=== PATIENT | female | born 1990 | race Caucasian/White ===

== ENCOUNTER → 2020-02-04 13:08 | Outpatient (ROUT) | payer OTHER, MEDICAID, SELFPAY ==
[2020-02-04 13:20] LABS: Ur Creatinine 20 (Normal); Ur Specific Gravity 1.025 (Normal)
[2020-02-04 13:21] LABS: UR Morphine/Opiate cutoff 300 Negative (Negative); Urine Amphetamines Negative (Negative); Urine Barbiturates Negative (Negative); Urine Benzodiazepines Negative (Negative); Urine Cocaine Negative (Negative); Urine MDMA Negative (Negative); Urine Methadone Negative (Negative); Urine Methamphetamines Negative (Negative); Urine Oxycodone Negative (Negative); Urine Phencyclidine Negative (Negative); Urine Tetrahydrocannabinol Negative (Negative); Urine Tricyclic Antidepressant Negative (Negative); Urine pH 7 (Normal)
== END ==
PROVIDERS: Visit Provider Nurse Practitioner Obstetrics & Gynecology
DX: Z34.90 Encounter for supervision of normal pregnancy, unspecified, unspecified trimester (principal); Z3A.11 11 weeks gestation of pregnancy
CPT/HCPCS: 80305

== ENCOUNTER → 2020-11-14 13:25 | Outpatient (CLI) | payer OTHER, MEDICAID, SELFPAY ==
--- NOTE | 2020-11-14 | DI.US.S_ITS ---
PROCEDURE: US OB >= 14 WEEKS FETUS INDICATIONS: ANATOMY OUTSIDE/PRIOR DATING DATA: Last menstrual period (LMP): Not available. LMP-based estimated date of delivery (MARINO): Not available . First dating scan (date and location): This study . Estimated date of delivery (MARINO) from first dating scan: 04/08/21 . TECHNIQUE: Real-time scanning was performed of the fetus, with image documentation and biometric measurements. Endovaginal scanning: Not needed COMPARISON: None. FINDINGS: General: A single living intrauterine gestation is present. Presentation: Vertex. Placenta: Placental position is right posterior , without previa. Amniotic fluid index: 17.1 cm, normal range is 5-24 cm. heart rate: 173 beats per minute. Maternal cervical canal: 4.1 cm long. Normal lower limit is 2.5 cm. biometrics: Biparietal diameter: 4.4 cm, 19 weeks 2 days Head circumference: 16.2 cm, 19 weeks 0 days Abdominal circumference: 14.2 cm, 19 weeks 4 days Femur length: 2.9 cm, 19 weeks 0 days Estimated gestational age from initial scan: not applicable. Composite gestational age from present scan: 19 weeks 2 days Estimated weight: 285 g. Measurement variability for biometric dating: +/- 7 days from 14 weeks to 15 weeks 6 days gestation, +/- 10 days from 16 weeks to 21 weeks 6 days gestation, +/- 2 weeks from 22 weeks to 27 weeks 6 days gestation, +/- 3 weeks for 28 weeks gestation or later. weight reference: 4500 g or EFW >90/95% is considered macrosomia or large for gestational age. EFW <10% is small for gestational age. EFW 5% or less is considered intra-uterine growth restriction. Anatomic survey: Neuro: Ventricles are non-dilated at less than 10 mm. Cisterna magna is normal at 3-11 mm. Cerebellum is normal in size and morphology. Nuchal skin fold: Normal at less than 6 mm between 14-21 weeks gestational age. Face: Nose and lips, facial profile are normal. Spine: No evidence for spina bifida. Heart: 4-chambered heart is present, with normal ventricular outflow tracts. Diaphragm: Diaphragm is intact. Stomach: Left-sided stomach is present. Kidneys: No hydronephrosis. Normal is less than 5 mm in 2nd trimester, less than 7 mm in 3rd trimester. Cord: 3-vessel cord has orthotopic insertion. Bladder: Normal in size. Extremities: All 4 extremities identified. IMPRESSION: Normal survey of anatomy. At time of scanning the placental margin inferiorly is within 4 mm from the internal os of the cervical canal. This may simply reflect a prominent contraction at time of imaging but follow-up assessment in 2 weeks is recommended to establish presence or absence of low lying placenta. Dictated by: Tim Bo M.D. on 11/14/2020 at 16:07 Approved by: Tim Bo M.D. on 11/14/2020 at 16:09
== END ==
PROVIDERS: Referring Provider Nurse Practitioner Obstetrics & Gynecology; Visit Provider Nurse Practitioner Obstetrics & Gynecology
DX: Z36.89 Encounter for other specified antenatal screening (principal); Z3A.19 19 weeks gestation of pregnancy
CPT/HCPCS: 76811

== ENCOUNTER → 2021-02-11 11:18 | Outpatient (CLI) | payer OTHER, MEDICAID, SELFPAY ==
--- NOTE | 2021-02-11 11:19 | DI.US.S_ITS ---
PROCEDURE: US OB LIMITED INDICATIONS: PLACENTA LOCATION OUTSIDE/PRIOR DATING DATA: Last menstrual period (LMP): Unknown . LMP-based estimated date of delivery (MARINO): Not applicable . First dating scan (date and location): November 14, 2020 . Estimated date of delivery (MARINO) from first dating scan: April 08, 2021 . TECHNIQUE: Real-time scanning was performed of the fetus, with image documentation. Endovaginal scanning: Endovaginal scanning performed to better evaluate placental edge relationship to the internal cervical os. COMPARISON: None. FINDINGS: A single living intrauterine gestation is present. Presentation: Cephalic. Placenta: Placental position is posterior , without previa. Amniotic fluid index: 8.6 cm, normal range is 5-24 cm. heart rate: 133 beats per minute. Maternal cervical canal: 4.6 cm long. Normal lower limit is 2.5 cm. Estimated gestational age from initial scan: 32 weeks and 0 days . IMPRESSION: Single living intrauterine gestation with estimated gestational age of approximately 32 weeks and 0 days. Posterior placenta without evidence for placenta previa. Dictated by: Jarrett Ruiz M.D. on 02/11/2021 at 13:40 Approved by: Jarrett Ruiz M.D. on 02/11/2021 at 13:46
== END ==
PROVIDERS: PCP Nurse Practitioner Obstetrics & Gynecology; Referring Provider Nurse Practitioner Obstetrics & Gynecology; Visit Provider Nurse Practitioner Obstetrics & Gynecology
DX: Z36.89 Encounter for other specified antenatal screening (principal); Z3A.32 32 weeks gestation of pregnancy
CPT/HCPCS: 76815; 76817

== ENCOUNTER → 2021-03-13 15:39 | Outpatient (ROUT) | payer OTHER, MEDICAID, SELFPAY | PROVIDERS: PCP Nurse Practitioner Obstetrics & Gynecology; Visit Provider Nurse Practitioner Obstetrics & Gynecology | DX: Z34.90 Encounter for supervision of normal pregnancy, unspecified, unspecified trimester (principal); Z36.85 Encounter for antenatal screening for Streptococcus B; Z3A.36 36 weeks gestation of pregnancy | CPT/HCPCS: 87081; 87147 ==

== ENCOUNTER 2021-04-01 13:55 | Outpatient (CLI) | payer OTHER, MEDICAID, SELFPAY ==
--- NOTE | 2021-04-01 14:17 | PM.OBTRLD ---
Visit Information Visit Information Date of evaluation: 04/01/21 Primary OB Provider: Karlee Alanis Reason for Evaluation: Yes rupture of membranes Comments/Additional reasons for admission: 31 year old at 38 weeks, 5 days by early US, here for evaluation of suspected rupture of membranes . Feels like her underwear have been wet since yesterday morning. Good movement, no contractions. Vital Signs Vital Signs: BP: 117/62 mmHg, HR: 93 bpm, T: 35.7 c temporal FOR[facility]LY [facility], [facility]1983 Social History (Updated 04/01/21 @ 18:13 by Karlee Alanis CNM) Smoking Status: Current every day smoker quit status: not considering quitting substance use type: does not use Review of Systems Review of Systems ROS: Yes All systems reviewed with the patient and are negative except as otherwise documented Exam Vital Signs (past 8 hours): see above Presentation: vertex Amniotic Fluid: no fluid Evaluation Evaluation Baseline heart rate: 120 Variability: Moderate (11-25) monitor accelerations: Present Monitor Decelerations: Absent Contraction Frequency (minutes): 3 Uterine Contraction Intensity: Mild Category of Tracing: Reactive Non-invasive Membranes Rupture Test: negative Comments: CE deferred Diagnosis, Plan/Disposition Final Diagnosis (1) Amniotic cavity/membrane problem suspected but not found: Status: Acute Plan/Disposition Plan: Reassurance of normal given, reviewed routine labor precautions, return to clinic as regularly scheduled. Discharge home
== END 2021-04-01 14:29 | disposition home or self-care (01) ==
LOC: OB 04-02 12:00
PROVIDERS: PCP Nurse Practitioner Obstetrics & Gynecology; Referring Provider Nurse Practitioner Obstetrics & Gynecology; Visit Provider Nurse Practitioner Obstetrics & Gynecology
DX: Z03.71 Encounter for suspected problem with amniotic cavity and membrane ruled out (principal); Z3A.38 38 weeks gestation of pregnancy
CPT/HCPCS: 59025; 84112; G0378; G0379

== ENCOUNTER 2021-04-06 11:15 | Outpatient (CLI) | payer OTHER, MEDICAID, SELFPAY ==
--- NOTE | 2021-04-06 11:34 | PM.OBTRLD ---
Visit Information Visit Information Date of evaluation: 04/06/21 Primary OB Provider: Karlee Alanis On-call OB Provider: Karlee Alanis Reason for Evaluation: Yes other Comments/Additional reasons for admission: 31YO @ 39wks3 days by early US who presents for evaluation of vaginal bleeding. Alonzo balloon was placed and removed 04/04/21 when 04/05/21 IOL was cancelled. +FM. No cramping, or VB. uncomplicated pN care w/ CNM. Vital Signs Vital Signs: BP 116/56 mmHg, HR 93bpm, T 36.3C Temporal PFSH Social History Smoking Status: Current every day smoker quit status: not considering quitting substance use type: does not use Review of Systems Review of Systems ROS: Yes All systems reviewed with the patient and are negative except as otherwise documented Exam Vital Signs (past 8 hours): see above Presentation: vertex Evaluation Evaluation Baseline heart rate: 155 Variability: Moderate (11-25) monitor accelerations: Present Monitor Decelerations: Variable (mild w/ CE) Contraction Frequency (minutes): 0 Category of Tracing: Reactive Cervical dilation (cm): 2 Cervical effacement (%): 70 station: -4 Comments: small amount of brown blood on glove after CE Diagnosis, Plan/Disposition Final Diagnosis (1) Supervision of normal in third trimester: Status: Acute Problem details: Reassurance of normal given Plan/Disposition Plan: discharge to home with routine labor precautions. IOL rescheduled for 04/09/2021.
== END 2021-04-06 11:45 | disposition home or self-care (01) ==
LOC: LABOR 12:38 → OB 04-09 10:45
PROVIDERS: PCP Nurse Practitioner Obstetrics & Gynecology; Referring Provider Nurse Practitioner Obstetrics & Gynecology; Visit Provider Nurse Practitioner Obstetrics & Gynecology
DX: O46.93 Antepartum hemorrhage, unspecified, third trimester (principal); Z3A.39 39 weeks gestation of pregnancy
CPT/HCPCS: 59025; G0378; G0379

== ENCOUNTER 2021-04-09 07:10 | Inpatient (IN) | payer OTHER, MEDICAID, SELFPAY ==
--- NOTE | 2021-04-09 07:42 | P.HPOB_ITS ---
OB HPI Date/Time Date of admission: 04/09/21 Date Patient Seen: 04/09/21 Time Patient Seen: 07:42 History of Present Condition Chief complaint: INDUCTION : 9 Para: 3 Narrative: Marybeth Aguero is a 31 year old female @ 34lla3f. Feeling ready with lots of FM. No cramping, VB or LOF. Uncomplicated care w/ CNM. Desires unmedicated but open to nitrous oxide if needed. Echo is here today for an elective IOL. Agreeable to Alonzo balloon placement and low dose pitocin. Placed a nicotine 14mg patch herself prior to arrival at the hospital. Indications Indication for induction OB: history of rapid labor History of Present care: good care Dating criteria: LMP confirmed by 1st trimester US Ultrasounds: normal 1st trimester US and normal mid trimester US Obstetrical complications: none Medical complications: none Preadmission Labs Blood type: B (+) positive -: GBS status: positive, HBsAG: negative, HIV: negative and RPR/VDLR: negative -: Chlamydia screen: not detected and Gonorrhea screen: not detected -: Rubella: immune HCT: 33 HCAB: negative PAP: Normal 1 hr GTT: 85 Prior (ies) History: 1) SAB at 13 weeks, 2009, 2) at 42 weeks, 2010, 3) at 42 weeks, 2012, 4) at 42 weeks 2013, 5) SAB at 8 weeks 2016, 6) TAB at 8 weeks, 2017, 7) TAB at 8 weeks, 2019, 8) TAB at 13 weeks 2019 Evaluation Evaluation Baseline heart rate: 135 Variability: Average (6-10) Monitor Decelerations: Absent Contraction Frequency (minutes): 0 Cervical dilation (cm): 3.5 Cervical effacement (%): 80 station: -3 Comments: Alonzo balloon manually inserted and inflated w/ 60mL NS. [facility] Medical History (Updated 04/09/21 @ 08:01 by Karlee Alanis CNM) Asthma Chronic pain Social History Smoking Status: Current every day smoker quit status: not considering quitting substance use type: does not use Meds Home Medications and Allergies Home Medications Medication Instructions Recorded Confirmed Type [MIGRAINE RELIEF] PRN PRN #0 09/28/17 History [ZICAM] #0 09/28/17 History ibuprofen 200 mg capsule (Advil 200 mg PO PRN PRN #0 09/28/17 History Liqui-Gel) sulfamethoxazole 800 1 tab PO BID #14 tab 09/28/17 Rx mg-trimethoprim 160 mg tablet Allergies Allergy/AdvReac Type Severity Reaction Status Date / Time albuterol [ALBUTEROL] Allergy Unknown DIFFICULTY Unverified 11/04/17 13:08 BREATHING latex [LATEX] Allergy Unknown Unverified 11/04/17 13:08 Review of Systems Review of Systems ROS: Yes All systems reviewed with the patient and are negative except as otherwise documented Exam Vital Signs (past 8 hours): BP 113/53bpm, HR 84bpm, T 36.7C Temporal Resp Effort & Inspection: normal respiratory effort Auscultation: clear to auscultation bilaterally Cardio Rate: regular rate Rhythm: regular rhythm Presentation: vertex Objective Labs Result Diagrams: 04/09/21 09:30 Assessment and Plan Assessment and Plan Assessment and Plan narrative: A: Term multipara IOL for GBS positive w/ hx of rapid labors GBS prophylaxis indicated Cat I FHR P: Alonzo balloon placed and inflated with 60 mL NS. Will start PCN for GBS prophylaxis. Plan to start pitocin oncestaffing allows and AROM once GBS treatment is adequate.
[2021-04-09 09:12] LABS: COVID19 - ADMIT (NP swab/PCR) Negative (Negative)
[2021-04-09] MEDS: LACTATED RINGERS 1,000 ML 100 ML IV (09:25)
[2021-04-09] MEDS: PENICILLIN G POTASSIUM 5,000,000 UNIT in DEXTROSE 5% IN WATER 250 ML IV (09:40)
[2021-04-09 10:07] LABS: Add Manual Diff / Slide Review NO; Basophils Absolute Auto 100 /uL (0-100); Basophils Percent Auto 0.6 % (0-2); Eosinophils Absolute Auto 200 /uL (0-450); Hematocrit 37.8 % (36-46); Hemoglobin 12.7 g/dL (12.0-16.0); Lymphocytes Absolute Auto 1500 /uL (1100-4500); Mean Corpuscular HGB Conc 33.4 % (30-36); Mean Corpuscular Hemoglobin 30.3 PG (26-34); Mean Corpuscular Volume 90.7 fL (80-100); Monocytes Absolute Auto 800 /uL (0-900); Monocytes Percent Auto 7.7 % (3-14); Neutrophils Absolute Auto 8200 /uL (1500-7000); Neutrophils Percent Auto 75.7 % (50-75); Platelet Count 232 X10^3/uL (150-400); Red Blood Cell Count 4.17 X10^6/uL (4.0-5.2); Red Cell Distribution Width 13.4 % (11.6-14.8); White Blood Cell Count 10.8 X10^3/uL (4.5-11.0)
--- NOTE | 2021-04-09 13:48 | PM.OBPNLAB ---
Date/Time Date Patient Seen: 04/09/21 Time Patient Seen: 13:48 Pain Control Pain control: tolerating well Comments: Has been changing positions frequently in her room, sitting on the ball and ambulating. Remains comfortable without contractions. Unable to start pitocin d/t staffing shortage. Echo is agreeable to AROM and eager for onset of labor. Loading dose of penicillin started @ 1000, next dose due @ 2pm. Pelvic Exam Dilation (cm): 5.5 Effacement (%): 80 station: -2 Amniotic membrane status: Ruptured (AROM, clear) Contractions Monitor mode: External Pitocin rate (mU/min): 0 Contraction frequency (min): 0 Status status: Category l Heart Rate Baseline: 130 Monitor Accelerations: Present Monitor Decelerations: Absent Monitor Variability: Moderate Assessment and Plan Assessment: induction ongoing Plan: begin patient augmentation Comments: AROM completed. Expectant management for now. Will start pitocin if no onset of labor when staffing allows. Labor support PRN. Reassess in 4 hours or sooner, PRN.
[2021-04-09] MEDS: PENICILLIN G POTASSIUM 3,000,000 UNIT/50 ML FROZ.PIGGY 100 UNIT IV (15:00)
[2021-04-09] MEDS: OXYTOCIN PREMIX 30 UNIT/500 ML PLAST..BAG IV (15:58)
[2021-04-09 15:59] VITALS: BP 122/57
--- NOTE | 2021-04-09 19:04 | PM.OBPRVD ---
Events: Labor Induction Labor & Delivery Delivery date: 04/09/21 Intrapartal Events: None Cervical ripening method: per Alonzo bulb protocol Induction method: AROM Delivery augmentation: pitocin Delivery monitor: external FHT and external uterine Route of delivery: Episiotomy description: None L&D Laceration Description: None Estimated blood loss (mL): 100 Anesthesia Type: Other (NO2) Narrative: Echo labored well with nitrous oxide for pain relief. Presumed complete with spontaneous urge to push. NSVB of a vigorous baby girl in CLARISSE position with no nuchal cord or shoulder dystocia over an intact perineum. was placed on maternal abdomen for drying and skin to skin. After cessation of pulsation, the cord was double clamped by AMPARO and cut by eder. Hospital cord blood hold sample was collected. Remaining 30 units of pitocin in 500mL LR was started at 250mL/hr for AMTSL. Gentle cord traction and single maternal push led to spontaneous, Schultze delivery of an apparently intact placenta, membranes and 3VC. Fundus immediately firm and bleeding minimal. QBL 100mL. Both mother and baby stable and skin to skin as I left [facility] room. [place] Baby 1: Infant gender: Female Presentation: vertex Position: Right Occiput Anterior Placenta delivery description: Spontaneous Cord Vessel Description: 3 Vessels score (1 min): 8 score (5 min): 9 weight: 3.311 kg Plan for aftercare: Routine care
[2021-04-09] MEDS: KETOROLAC 30 MG/ML VIAL IV (20:52)
[2021-04-09] MEDS: ACETAMINOPHEN 325 MG TABLET 650 MG PO (20:52)
[2021-04-09] MEDS: DERMOPLAST SPRAY 20% 60 ML 1 SPRAY TOP (20:53)
[2021-04-10] MEDS: NICOTINE 14 PATCH 14 MG TOP (08:17)
[2021-04-10] MEDS: IBUPROFEN 600 MG TABLET PO (09:23)
--- NOTE | 2021-04-10 13:15 | PM.OBDS.1 ---
Discharge Providers Provider Date of admission: 04/09/21 07:10 Discharge Date: 04/10/21 Primary care physician: Karlee Alanis CNM Consults: 04/10/21 19:02 Consult to Warehouse Distribution Manager Routine Comment: Discharge provider: Karlee Alanis CNM Summary Hospital Course Date Patient Seen: 04/10/21 Time Patient Seen: 13:15 Diagnoses: o80 Hospital Course: PPD1: Echo is voiding, ambulating and independently. Has been tolerating a general diet with pain well controlled w/ PO medication. Vaginal bleeding is light to moderate without clots. She has been coping well with a nicotine patch and still desires to Peripartum Data Delivery Method: Natural Vaginal Laceration Description: None Episiotomy description: None complications: none 1: Gender: Female Disposition of : home Discharge Diagnosis (1) Encounter for full-term uncomplicated delivery: Status: Acute Status at Discharge Cognitive/behavioral status at discharge: oriented and calm Functional status at discharge: independent ambulation Overall status at discharge: patient is progressing back to baseline Time Spent with Patient Time attestation: Total time spent providing and/or coordinating discharge services: Time spent: Less than 30 minutes Specific discharge activities: education Time spent discussing smoking cessation with patient: 3 to 10 minutes Objective Labs Result Diagrams: 04/09/21 09:30 Labs: Laboratory Results - last 24 hr 04/09/21 09:30 Blood Type B Positive Antibody Screen Negative Exam Vital Signs (past 8 hours): BP 117/58mmHg, 96bpm, T 36.3C Temporal Other: Fundus firm @ u. Lochia light, no clots. Perineum intact. Discharge Plan Discharge Plan Patient Disposition: Home Discharge orders & Medications Prescriptions: New nicotine [Nicoderm CQ] 14 mg/24 hr patch 24 hour 1 patch transdermal DAILY Qty: 14 RF: 1 ibuprofen 600 mg Tablet 600 mg PO Q6HR PRN (Reason: Pain, Mild (1-3)) 14 Days Qty: 60 RF: 0 Discontinued ibuprofen [Advil Liqui-Gel] 200 MG capsule 200 mg PO PRN PRN (Reason: Headache) Qty: 0 RF: 0 [ZICAM] Qty: 0 RF: 0 [MIGRAINE RELIEF] PRN PRN (Reason: Headache) Qty: 0 RF: 0 sulfamethoxazole-trimethoprim 800 MG/160 MG tablet 1 tab PO BID Qty: 14 RF: 0 Follow up/Referrals: Karlee Alanis CNM [Primary Care Provider] - (Follow-up by Telehealth 04/22/2021 @ 1200 Follow-up in office 05/20/2021 @ 1100) Diet/Activity/Treatments Diet: Diet as Tolerated and Regular Activity: pelvic rest x 6 weeks Skin/Wound/Dressing Care Report to your healthcare provider any signs of infection, such as:: chills, fever, increased pain, unusual drainage and unusual redness Visit Report/Discharge Packet Instructions: Depression Discharge Data Primary Care Provider: Karlee Alanis
[2021-04-10 13:54] VITALS: BP 132/53; PULSE 72; RESP 15; TEMP 36.9
== END 2021-04-10 14:40 | disposition home or self-care (01) | DRG 560 ==
PROVIDERS: Admitting Provider Nurse Practitioner Obstetrics & Gynecology; PCP Nurse Practitioner Obstetrics & Gynecology; Referring Provider Nurse Practitioner Obstetrics & Gynecology; Visit Provider Nurse Practitioner Obstetrics & Gynecology
DX: O99.824 Streptococcus B carrier state complicating childbirth (principal); Z3A.39 39 weeks gestation of pregnancy; Z37.0 Single live birth; O99.334 Smoking (tobacco) complicating childbirth
CPT/HCPCS: 36415; 59025; 59050; 85025; 86850; 86900; 86901; 87635; C9803; G0379; J1885; J2540; J2590

== ENCOUNTER 2023-04-29 14:46 | Outpatient (CLI) | payer OTHER, MEDICAID, SELFPAY ==
[2023-04-29] VITALS (9 sets, daily range): BP systolic 101–117; BP diastolic 46–57; PULSE 74–80; RESP 13–21; TEMP 36.6; O2SAT 98–100
--- NOTE | 2023-04-29 14:47 | DI.RAD.S_ITS ---
PROCEDURE: PAIN C/T INTERLAMINAR INJECT INDICATIONS: SPINAL STENOSIS COMPARISON: [facility], MR, MR CERVICAL SPINE WITHOUT CONTRAST, 09/05/2022, 17:08. FINDINGS: Fluoroscopic spot filming was performed to verify placement of spinal needles at the T1-T2 level(s), as labeled on the films. Appropriate location(s) of the needle tip(s) was confirmed by injection of iodinated contrast. IMPRESSION: Intraprocedural examination within normal limits. Dictated by: Paolo Coombs M.D. on 04/29/2023 at 17:13 Approved by: Paolo Coombs M.D. on 04/29/2023 at 17:14
[2023-04-29] MEDS: MIDAZOLAM 2 MG/2 ML VIAL IV (15:12)
[2023-04-29] MEDS: DEXAMETHASONE 10 MG/ML VIAL INJ (15:16)
[2023-04-29] MEDS: iopamidoL 15 ML VIAL 3 ML INJ (15:16)
--- NOTE | 2023-04-29 15:34 | P.PCN_ITS ---
Date/Time/Diagnoses Date of procedure: 04/29/23 Time of procedure: 15:00 Procedure Notes Physician: Rick Richmond Total Fluoroscopy time (seconds): 32 Total sedation minutes: 16 Procedure in detail & Post-procedure care: T1-2 Interlaminar Epidural Steroid Injection Indications: Echo is presenting for treatment of cervical radiculopathy with ri ght-sided neck and upper extremity pain. After further review of cervical MRI, decision made to proceed with T1-2 level instead of the ordered C7-T1 level due to preferable epidural space seen on T1 weighted MRI. Preoperative diagnosis: Cervical radiculopathy Postoperative diagnosis: Same Focused Examination: Ax3 Mood and affect are normal Vital Signs: VSS ASA: 2 Consent: Following review of allergies and potential side effects/complications, including, but not necessarily limited to, infection, allergic reaction, local tissue breakdown, stroke, temporary or permanent nerve injury, paralysis, and possible , the patient indicated that they understood and agreed to proceed.? An informed consent document was signed by the patient, witnessed by a nurse and placed in the patient's chart.? Additionally, other treatment options including medications and physical therapy were reviewed with the patient. All questions were answered. Site was then marked. Anesthesia: After review of previous anesthetic history and IV conscious sedation, the patient was deemed safe to proceed with today's procedure with IV conscious sedation. IV sedation was accomplished with midazolam 2 mg administered by the RN after order by Dr. Richmond. Sedation was titrated to edgardo ent comfort during the course of the procedure. Patient remained responsive to all verbal commands. Position: Prone Monitoring: NIBP, Pulse oximetry, 3 lead EKG Needle used: 18 G 3.5? Tuohy Contrast: Isovue 300M Injectate: Dexamethasone 10 mg with normal saline 2 mL Technique: The skin was prepped with chloraprep and then draped in a sterile fashion. Time out was performed as per protocol. Oxygen applied via NC. Skin and subcutaneous structures of the needle entry site was then infiltrated with 3 mL of lidocaine 1%. Under AP, lateral and contralateral oblique fluoroscopic control, the Tuohy needle was guided into the T1-2 epidural space. The space was accessed with loss of resistance technique. Isovue 300M was then injected and the spread was consistent with the epidural space. There was no evidence for intravascular or intrathecal uptake. After negative aspiration, the above- mentioned injectate was then slowly administered and the needle withdrawn. The patient expressed no unusual discomfort or paresthesias during the injection. Band-Aids applied to injection sites. EBL: less than 1 ml Complications: None Post Procedure: Patient was taken to the recovery and monitored. The patient was provided a Pain Log to continue to record the patient's response to the target- specific procedure prior to the patient's follow-up visit with the referring physician. Patient was stable upon discharge. Detailed post procedure instructions were provided. Patient was asked to call in the event of worsening pain, fever, weakness, numbness or bladder or bowel incontinence
== END 2023-04-29 15:47 | disposition home or self-care (01) ==
LOC: RAD 14:47
PROVIDERS: PCP Family Medicine; Referring Provider Anesthesiology; Visit Provider Anesthesiology
DX: M54.12 Radiculopathy, cervical region (principal)
CPT/HCPCS: 62321; 99152; J1100; J2250

== ENCOUNTER 2023-05-08 19:55 | Emergency (ER) | payer OTHER, MEDICAID, SELFPAY ==
[2023-05-08 19:59] VITALS: BP 138/61; PULSE 79; RESP 18; TEMP 36.5; O2SAT 100; BMI 23.0
--- NOTE | 2023-05-08 20:56 | PC.NURSE ---
Patient not in waiting room when called, registration states patient left and chose to not be seen.
== END 2023-05-08 21:01 | disposition left against medical advice (07) ==
PROVIDERS: Emergency Provider Emergency Medicine; PCP Family Medicine
DX: K08.89 Other specified disorders of teeth and supporting structures (principal)
CPT/HCPCS: 99281

== ENCOUNTER 2024-05-06 19:14 | Emergency (ER) | payer BC, SELFPAY ==
[2024-05-06 19:18] VITALS: BP 138/64; PULSE 105; RESP 17; TEMP 36.4; O2SAT 100; BMI 24.8
[2024-05-06 19:55] LABS: Bacteria Urine Few (2-10); Culture Indicated Urine Specimen Cultured; RBC Urine None Seen (0-5/HPF); Squamous Epithelial Cell Urine 1-5 /HPF (0-5/HPF); Urine Volume 10mL (spun); WBC Urine 1-5/HPF (0-5/HPF)
--- NOTE | 2024-05-06 21:21 | ED_ITS ---
HPI - General Adult General Chief complaint: Abdominal Pain Stated complaint: Diff. Urinating Time Seen by Provider: 05/06/24 20:34 Source: patient Mode of arrival: Ambulatory History of Present Illness HPI narrative: Patient is a 34-year-old female who is 4 days late on her menstrual cycle who is here for evaluation of what she states is problems urinating. No symptoms been going on for the past several. She also has symptoms that be consistent with constipation. She states she was a lot of pressure feel like she needs to go have a bowel movement but can not. Has tried to increase her fiber intake. No fevers. No vaginal bleeding. Related Data Home Medications Medication Instructions Recorded Confirmed celecoxib 200 mg capsule (Celebrex) 200 mg PO DAILY 01/23/23 04/09/23 etonogestrel 0.12 mg-ethinyl 1 vag ring vaginal 01/23/23 04/09/23 estradiol 0.015 mg/24 hr vaginal ring folic acid 1 mg tablet 1 mg PO DAILY 04/09/23 04/09/23 gabapentin 100 mg capsule 300 mg PO 3XD 04/09/23 04/09/23 lidocaine 5 % topical patch 1 patch topical DAILY 04/09/23 04/09/23 methotrexate sodium 25 mg/mL 25 mg IM DAILY 04/09/23 04/09/23 injection solution syringe with needle 3 mL 25 x 5/8 #1 ea 04/09/23 04/09/23 (BD Luer-Lyric Syringe) Previous Rx's Medication Instructions Recorded nicotine 14 mg/24 hr daily 1 patch transdermal DAILY #14 ea 04/10/21 transdermal patch (Nicoderm CQ) trazodone 50 mg tablet 50 mg PO BEDTIME PRN insomnia #30 01/23/23 tabs tizanidine 2 mg tablet 2 mg PO BID #60 tabs 12/14/23 Allergies Allergy/AdvReac Type Severity Reaction Status Date / Time albuterol [ALBUTEROL] Allergy Unknown DIFFICULTY Verified 05/06/24 19:18 BREATHING latex [LATEX] AdvReac Unknown Rash Verified 05/06/24 19:18 Review of Systems Review of Systems ROS Unobtainable: All systems reviewed & are unremarkable except as noted in HPI and below Patient History Medical History Cervical spondylosis Cervicalgia Cervical radiculopathy Psoriasis (~2012) Eczema (~1988) Acne (~1998) Headache (~2019) Shoulder pain (~2019) Chronic back pain (~2018) Cervical spine disease (~2018) Carpal tunnel syndrome (~2001) Partial blindness (~1988) Anxiety Spontaneous vaginal delivery (04/09/21) Chronic pain Asthma (~1988) Surgical History Anesthesia History of dilatation and curettage (~2011) Family History Grandmother Diabetes mellitus History of heart disease Hypertension Hyperlipidemia Social History household members: children Smoking Status: Former smoker quit status: not considering quitting substance use type: does not use Smoking Status: Former smoker alcohol intake frequency: 3 or more drinks per day Alcohol type: hard liquor Substance Use Type: does not use Exam Initial Vital Signs Initial Vital Signs: Vital Signs Temperature 97.5 F L 05/06/24 19:18 Pulse Rate 105 H 05/06/24 19:18 Respiratory Rate 17 05/06/24 19:18 Blood Pressure 138/64 05/06/24 19:18 Pulse Oximetry 100 05/06/24 19:18 Oxygen Delivery Method Room Air 05/06/24 19:18 Const General: cooperative and No ill appearing HENMT Head: normal to inspection Resp Effort & Inspection: normal respiratory effort Cardio Rate: regular rate Skin General: no rashes or lesions noted Neuro General: patient alert and patient awake Extrem General: normal to inspection Course Orders Ordered: ED Orders 05/06/24 19:30 Urine Culture Stat Urine Microscopic Stat 05/06/24 21:45 Complete Blood Count AUTO DIFF Stat Comprehensive Metabolic Panel Stat HCG Quantitative /Beta subunit Stat Lipase Stat 05/06/24 21:55 US OB <= 14 weeks fetus Stat Discontinued Medications Acetaminophen (Acetaminophen 325 Mg Tablet) 650 mg PO NOW ONE Stop: 05/06/24 23:09 Last Admin: 05/06/24 23:12 Dose: 650 mg Documented By: PACHECO Ondansetron HCl (Ondansetron 4 Mg/2 Ml Inj) 4 mg IV NOW PRN PRN Reason: Nausea And Vomiting Ondansetron HCl (Ondansetron 4 Mg Odt) 4 mg SL NOW PRN PRN Reason: Nausea And Vomiting Vital Signs Vital signs: Vital Signs - 8 hr 05/06/24 19:18 05/06/24 23:14 Temperature 97.5 F L Pulse Rate 105 H 96 H Respiratory Rate 17 16 Blood Pressure 138/64 130/32 L Pulse Oximetry 100 100 Oxygen Delivery Method Room Air Room Air Medical Decision Making Lab Data Lab results reviewed: Yes I reviewed the patient's lab results. 05/06/24 21:45 05/06/24 21:45 Labs: Lab Results 05/06/24 05/06/24 Range/Units 19:30 21:45 WBC 5.5 (4.5-11.0) X10^3/uL RBC 4.22 (4.0-5.2) X10^6/uL Hgb 13.1 (12.0-16.0) g/dL Hct 38.8 (36-46) % MCV 91.9 (80-100) fL MCH 31.0 (26-34) PG MCHC 33.8 (30-36) % RDW 12.1 (11.6-14.8) % Plt Count 269 (150-400) X10^3/uL Neut % (Auto) 50.7 (50-75) % Lymph % (Auto) 39.2 (25-40) % Wharton % (Auto) 6.1 (3-14) % Eos % (Auto) 3.2 (2-4) % Baso % (Auto) 0.8 (0-2) % Neut # (Auto) 2800 (2100-5758) /uL Lymph # (Auto) 2200 (9518-6035) /uL Wharton # (Auto) 300 (0-900) /uL Eos # (Auto) 200 (0-450) /uL Baso # (Auto) 0 (0-100) /uL Sodium 136 L (137-145) mmol/L Potassium 3.6 (3.4-5.1) mmol/L Chloride 104 (98-107) mmol/L Carbon Dioxide 26 (22-32) mmol/L BUN 8 (7-17) mg/dL Creatinine 0.61 (0.52-1.04) mg/dL Estimated GFR > 60 (>60) mL/min BUN/Creatinine Ratio 13.1 (6-22) Glucose 109 H (70-100) mg/dL Calcium 9.2 (8.4-10.2) mg/dL Total Bilirubin 0.2 (0.2-1.3) mg/dL AST 31 (14-36) IU/L ALT 19 (<35) IU/L Alkaline Phosphatase 58 (38-126) U/L Total Protein 6.7 (6.3-8.2) g/dL Albumin 4.0 (3.5-5.0) g/dL Globulin 2.7 (1.7-4.1) g/dL Albumin/Globulin Ratio 1.5 (1.0-2.8) Lipase 85 (23-300) U/L HCG, Quant 263.55 mIU/mL Urine RBC None seen (0-5/HPF) Urine WBC 1-5/hpf (0-5/HPF) Ur Squamous Epith Cells 1-5 /hpf (0-5/HPF) Urine Bacteria Few (2-10) H (None) Ur Culture Indicated? Specimen cultured Vol Urine Centrifuged 10ml (spun) Point of Care Testing Test Results Positive Urine Dip Bedside Urine Glucose Negative Bedside Urine Bilirubin - Negative Bedside Urine Ketone - Negative Urine Specific Quinn 1.02 Bedside Urine Occult Blood - Negative Bedside Urine pH 6 Bedside Urine Protein - Negative Bedside Urine Urobilinogen - Negative Bedside Urine Nitrite - Negative Bedside Urine Leukocytes + 70 Esterase Point of care testing: Point of Care Testing Test Results Positive Urine Dip Bedside Urine Glucose Negative Bedside Urine Bilirubin - Negative Bedside Urine Ketone - Negative Urine Specific Quinn 1.02 Bedside Urine Occult Blood - Negative Bedside Urine pH 6 Bedside Urine Protein - Negative Bedside Urine Urobilinogen - Negative Bedside Urine Nitrite - Negative Bedside Urine Leukocytes + 70 Esterase Imaging Data US - OB: Radiologist's Impression: PROCEDURE: US OB <= 14 WEEKS FETUS INDICATIONS: Positive hCG and left adnexa pain OUTSIDE/PRIOR DATING DATA: Last menstrual period (LMP): 04/04/2024. LMP-based estimated date of delivery (MARINO): 01/09/2025. TECHNIQUE: Real-time scanning was performed of the fetus and maternal pelvic organs, with image documentation. Endovaginal scanning was also performed to better visualize the fetus and maternal ovaries. COMPARISON: None. FINDINGS: Embryo: Several small cystic areas are seen within the endometrium. The largest may represent a gestational sac measuring 3 mm, which would be consistent with 5 weeks and 0 days. No pole is identified. Heart rate: No pole is identified. Maternal organs: Complex cyst within the right ovary, may represent a corpus luteal cyst. Enlarged bilateral adnexal veins. IMPRESSION: 1. Several small cystic areas are seen within the endometrium. The largest may represent a gestational sac which would be consistent with 5 weeks and 0 days. No pole is seen. Recommend follow-up beta HCG and ultrasound as clinically indicated. 2. Complex cyst within the right ovary may represent a corpus luteal cyst, attention on follow-up. 3. Enlarged bilateral neck stool veins, nonspecific and can be seen in the setting of pelvic congestion syndrome. Recommend clinical correlation. [facility] Narrative Medical decision making narrative: test is positive and the patient was informed this. She states she was 4 days late for her menstrual cycle. She was Rh positive. She was not retaining urine. Postvoid bladder scan shows less than 50 cc of urine. Urinalysis does have bacteria but no other signs of infection. A urine culture was pending at the time of her discharge. HCG quantitative level was below the threshold that we would expect to see an intrauterine . Ultrasound shows multiple cysts but no IUP definitively seen. I did discuss this with the patient. Advised that she follow-up with her primary doctor or her OB provider on Thursday. We discussed potentially increasing the amount of laxatives she was taking but she states that she was not think that she was constipated and that the discomfort that she was having is from her back. Because of her she was somewhat limited on what she can take for discomfort. Patient was given return precautions. Discharge Plan Departure Patient Disposition: Home Clinical Impression: Instructions: Medications and Activity Restrictions/Additional Instructions: I do recommend on Thursday you contact your primary care doctor/jockey's agent for a follow-up. You are going to need repeat lab work until the can be definitively located within the uterus. You can take Tylenol for any discomfort. Be sure that you were having normal regular bowel movements. Return to the emergency department for new symptoms. Prescriptions: No Action tizanidine 2 mg tablet 2 mg PO BID Qty: 60 2RF etonogestrel-ethinyl estradiol 0.12-0.015 mg/24 hr ring 1 vag ring vaginal celecoxib [Celebrex] 200 mg capsule 200 mg PO DAILY trazodone 50 mg tablet 50 mg PO BEDTIME PRN (Reason: insomnia) Qty: 30 11RF nicotine [Nicoderm CQ] 14 mg/24 hr patch 24 hour 1 patch transdermal DAILY Qty: 14 1RF methotrexate sodium 25 mg/mL solution 25 mg IM DAILY Patient Comments: [NO ORIGINAL SIG] folic acid 1 mg tablet 1 mg PO DAILY (DME) BD Luer-Lyric Syringe 3 mL 25 x 5/8 syringe See Rx Instructions .ROUTE .MEDSUPPLY Qty: 1 Patient Comments: [NO ORIGINAL SIG] Rx Instructions: As directed lidocaine 5 % adhesive patch,medicated 1 patch topical DAILY gabapentin 100 mg capsule 300 mg PO 3XD Referrals: Eduardo Dietrich DO [Primary Care Provider] - Stand Alone Forms: Patient Portal/API
--- NOTE | 2024-05-06 21:55 | DI.US.S_ITS ---
PROCEDURE: US OB <= 14 WEEKS FETUS INDICATIONS: Positive hCG and left adnexa pain OUTSIDE/PRIOR DATING DATA: Last menstrual period (LMP): 04/04/2024. LMP-based estimated date of delivery (MARINO): 01/09/2025. TECHNIQUE: Real-time scanning was performed of the fetus and maternal pelvic organs, with image documentation. Endovaginal scanning was also performed to better visualize the fetus and maternal ovaries. COMPARISON: None. FINDINGS: Embryo: Several small cystic areas are seen within the endometrium. The largest may represent a gestational sac measuring 3 mm, which would be consistent with 5 weeks and 0 days. No pole is identified. Heart rate: No pole is identified. Maternal organs: Complex cyst within the right ovary, may represent a corpus luteal cyst. Enlarged bilateral adnexal veins. IMPRESSION: 1. Several small cystic areas are seen within the endometrium. The largest may represent a gestational sac which would be consistent with 5 weeks and 0 days. No pole is seen. Recommend follow-up beta HCG and ultrasound as clinically indicated. 2. Complex cyst within the right ovary may represent a corpus luteal cyst, attention on follow-up. 3. Enlarged bilateral neck stool veins, nonspecific and can be seen in the setting of pelvic congestion syndrome. Recommend clinical correlation. We strive to produce accurate, complete, and clear reports of imaging services. To assist us in improving patient care, this report was composed using standard report templates and voice recognition software. Therefore, it may contain abnormal punctuation, insertions and/or omissions. Occasional wrong-word or sound-alike substitutions may occur. Though we review the report and make efforts to correct it, we do recommend that the report be read carefully in proper context to recognize any text inaccuracies. Dictated by: Arthur Hernandez M.D. on 05/06/2024 at 22:45 Approved by: Arthur Hernandez M.D. on 05/06/2024 at 22:48
[2024-05-06 22:12] LABS: Add Manual Diff / Slide Review NO; Basophils Absolute Auto 0 /uL (0-100); Basophils Percent Auto 0.8 % (0-2); Eosinophils Absolute Auto 200 /uL (0-450); Eosinophils Percent Auto 3.2 % (2-4); Hematocrit 38.8 % (36-46); Hemoglobin 13.1 g/dL (12.0-16.0); Lymphocytes Absolute Auto 2200 /uL (1100-4500); Lymphocytes Percent Auto 39.2 % (25-40); Mean Corpuscular HGB Conc 33.8 % (30-36); Mean Corpuscular Volume 91.9 fL (80-100); Monocytes Absolute Auto 300 /uL (0-900); Monocytes Percent Auto 6.1 % (3-14); Neutrophils Absolute Auto 2800 /uL (1500-7000); Neutrophils Percent Auto 50.7 % (50-75); Platelet Count 269 X10^3/uL (150-400); Red Blood Cell Count 4.22 X10^6/uL (4.0-5.2); Red Cell Distribution Width 12.1 % (11.6-14.8); White Blood Cell Count 5.5 X10^3/uL (4.5-11.0)
[2024-05-06 22:21] LABS: Alanine Aminotransferase 19 IU/L (<35); Albumin Globulin Ratio 1.5 (1.0-2.8); Alkaline Phosphatase 58 U/L (38-126); Aspartate Aminotransferase 31 IU/L (14-36); BUN Creatinine Ratio 13.1 (6-22); Bilirubin Total 0.2 mg/dL (0.2-1.3); Blood Urea Nitrogen 8 mg/dL (7-17); Calcium 9.2 mg/dL (8.4-10.2); Carbon Dioxide 26 mmol/L (22-32); Chloride 104 mmol/L (98-107); Estimated Glomerular Filt Rate > 60 mL/min (>60); Globulin 2.7 g/dL (1.7-4.1); Glucose 109 mg/dL (70-100); HEMOLYSIS < 15 (0-50); Lipase 85 U/L (23-300); Potassium 3.6 mmol/L (3.4-5.1); Sodium 136 mmol/L (137-145); Total Protein 6.7 g/dL (6.3-8.2)
[2024-05-06 22:37] LABS: HCG Quantitative /Beta subunit 263.55 mIU/mL
[2024-05-06] MEDS: ACETAMINOPHEN 325 MG TABLET 650 MG PO (23:12)
[2024-05-06 23:14] VITALS: BP 130/32; PULSE 96; RESP 16; O2SAT 100
== END 2024-05-06 23:16 | disposition home or self-care (01) ==
PROVIDERS: Emergency Provider Emergency Medicine; PCP Family Medicine
DX: R10.9 Unspecified abdominal pain (principal); Z33.1 Pregnant state, incidental
CPT/HCPCS: 51798; 76801; 76817; 80053; 81003; 81015; 81025; 83690; 84702; 85025; 87086; 99283; 99284

== ENCOUNTER → 2024-05-20 15:58 | Outpatient (CLI) | payer BC, SELFPAY ==
--- NOTE | 2024-05-20 16:00 | DI.US.S_ITS ---
PROCEDURE: US OB <= 14 WEEKS FETUS INDICATIONS: VIABILITY / ECTOPIC OUTSIDE/PRIOR DATING DATA: Last menstrual period (LMP): 04/04/2022 4. LMP-based estimated date of delivery (MARINO): 01/09/2025. TECHNIQUE: Real-time scanning was performed of the fetus and maternal pelvic organs, with image documentation. Endovaginal scanning was also performed to better visualize the fetus and maternal ovaries. COMPARISON: [facility], , OB <= 14 WEEKS FETUS, 05/06/2024, 22:04. FINDINGS: There is a small cystic lesion in the endometrium, without decidual reaction. No pole visualized. Maternal organs: Ovaries are unremarkable. No adnexal mass. IMPRESSION: Small cystic lesion within the endometrium, without decidual reaction. Differential includes very early gestational , endometrial cyst, or a pseudo gestational sac. Correlate with beta HCG and consider follow-up ultrasound if necessary. No adnexal mass. We strive to produce accurate, complete, and clear reports of imaging services. To assist us in improving patient care, this report was composed using standard report templates and voice recognition software. Therefore, it may contain abnormal punctuation, insertions and/or omissions. Occasional wrong-word or sound-alike substitutions may occur. Though we review the report and make efforts to correct it, we do recommend that the report be read carefully in proper context to recognize any text inaccuracies. Dictated by: Williams Martino M.D. on 05/20/2024 at 21:04 Approved by: Williams Martino M.D. on 05/20/2024 at 21:06
== END ==
PROVIDERS: PCP Family Medicine; Referring Provider Advanced Practice Midwife; Visit Provider Advanced Practice Midwife
DX: O02.81 Inappropriate change in quantitative human chorionic gonadotropin (hCG) in early pregnancy (principal)
CPT/HCPCS: 76801